=== PATIENT | male | born 1990 | race African-American/Black ===

== ENCOUNTER 2024-04-16 16:55 | Emergency (ER) | payer SELFPAY ==
[~2024-04-16] VITALS: Ht 177.8 cm; Wt 163.3 kg
[2024-04-16 17:34] VITALS: BP 127/85; PULSE 112; RESP 18; TEMP 36.8; O2SAT 98
[2024-04-16] MEDS: LIDOCAINE HCL 1% 20ML VIAL INFIL ONE (18:42)
[2024-04-16] MEDS: BACITRACIN ZINC OINT UDPKT TOP ONE (18:43)
[2024-04-16] MEDS ORDERED: BO1 TP (19:19)
[2024-04-16] MEDS: TETANUS, DIPHTHERIA, PERTUSSIS VAC/PF 0.5ML (>10YR OLD) IM ONE (19:33)
== END 2024-04-16 19:37 | disposition home or self-care (01) ==
LOC: ER 16:55
DX: S81.812A Laceration without foreign body, left lower leg, initial encounter (principal); W45.8XXA Other foreign body or object entering through skin, initial encounter; Y93.89 Activity, other specified; Y92.89 Other specified places as the place of occurrence of the external cause; Y99.8 Other external cause status
CPT/HCPCS: 99283; 73590; 90715; 12002; 90471; J3490

== ENCOUNTER 2024-04-18 11:46 | Emergency (ER) | payer SELFPAY ==
[~2024-04-18] VITALS: Ht 177.8 cm; Wt 110.0 kg
[~2024-04-18 11:46] MED LIST: BO1 TP
[2024-04-18 11:50] VITALS: O2SAT 100
[2024-04-18 12:07] VITALS: BP 119/79; PULSE 85; RESP 18; TEMP 36.6; O2SAT 100
== END 2024-04-18 12:08 | disposition home or self-care (01) ==
LOC: ER 11:46
DX: S81.812D Laceration without foreign body, left lower leg, subsequent encounter (principal); X58.XXXD Exposure to other specified factors, subsequent encounter
CPT/HCPCS: 99281